=== PATIENT | female | born 1960 | race Two or more races ===

== ENCOUNTER 2024-06-01 07:51 | Emergency (ER) | payer BC ==
[~2024-06-01] VITALS: Ht 165.1 cm; Wt 115.7 kg
[2024-06-01] MEDS ORDERED: HYDROCHLOROTHIA25 MG PO (08:23)
[2024-06-01] MEDS ORDERED: ALPRAZOLAM0.25 MG PO (08:23)
[2024-06-01] MEDS ORDERED: LISINOPRIL20 MG PO (08:23)
[2024-06-01] MEDS ORDERED: AMPHETAMINE SAL20 MG PO (08:23)
[2024-06-01] MEDS ORDERED: BUDESONIDE-FO10.2 G1 (08:23)
[2024-06-01] MEDS ORDERED: HYOSCYAMINE0.375 M2 PO (08:24)
[2024-06-01] MEDS ORDERED: NIFEDIPINE ER60 MG PO (08:24)
[2024-06-01] MEDS ORDERED: OPTICHAMBER DI1 EACH MC (08:24)
[2024-06-01] MEDS ORDERED: ESTRADIOL (08:24)
[2024-06-01] MEDS ORDERED: METOPROLOL SUC100 MG PO (08:24)
[2024-06-01] MEDS ORDERED: DESVENLAFAXINE100 M3 PO (08:24)
[2024-06-01] MEDS ORDERED: ACETAMINOPHEN 500 MG GEL..CAP PO ONE ×2 (08:36→08:45)
[2024-06-01] MEDS ORDERED: METHYLPREDNISOLONE SOD SUCC 40 MG VIAL IV STA (09:08)
[2024-06-01] MEDS ORDERED: BUDESONIDE 0.5 MG/2 ML AMPUL.NEB IH STA (09:09)
[2024-06-01] MEDS ORDERED: ALBUTEROL SULFATE 3 ML/2.5 MG AMPUL.NEB IH SCH (09:15)
[2024-06-01] MEDS ORDERED: METHYLPREDNISOLONE SOD SUCC 40 MG VIAL ONE (09:22)
[2024-06-01] MEDS ORDERED: ALBUTEROL SULFATE 3 ML/2.5 MG AMPUL.NEB IH ONE (09:40)
[2024-06-01] MEDS ORDERED: BUDESONIDE 0.5 MG/2 ML AMPUL.NEB IH ONE (09:40)
[2024-06-01 09:46] LABS: HEMATOCRIT 32.7 % (36.0-45.00); HEMOGLOBIN 10.9 g/dL (12.0-15.00); MEAN CELL VOLUME 82.8 fL (80.00-100.00); MEAN CORPUSCULAR HEMOGLOBIN 27.7 pg (27.00-32.0); MEAN CORPUSCULAR HGB CONC 33.4 g/dl (32.0-36.0); PLATELET COUNT 164 K/uL (150-450); RED BLOOD COUNT 3.95 M/uL (4.00-6.00); RED CELL DISTRIBUTION WIDTH 13.2 % (11.5-14.5)
[2024-06-01] MEDS ORDERED: OSELTAMIVIR PHOSPHATE 75 MG CAPSULE PO ONE (11:06)
[2024-06-01] MEDS ORDERED: OSELTAMIVIR PHOSPHATE 75 MG CAPSULE PO STA (11:07)
[2024-06-01] MEDS ORDERED: OSEL75CA PO (11:28)
== END 2024-06-01 11:33 | disposition home or self-care (01) ==
LOC: ER 07:53
PROVIDERS: Emergency Medicine
DX: R53.81 Other malaise (principal); J45.901 Unspecified asthma with (acute) exacerbation; J10.1 Influenza due to other identified influenza virus with other respiratory manifestations; Z20.822 Contact with and (suspected) exposure to COVID-19